=== PATIENT | male | born 1955 | race African-American/Black ===

== ENCOUNTER 2018-11-02 12:36 | Emergency (ER) | payer BC, OTHER ==
[2018-11-02] MEDS ORDERED: OSELTAMIVIR 75 MG CAP ONE (14:16)
--- NOTE | 2018-11-02 14:46 | RAD REPORT ---
EXAM DESCRIPTION: Katie Luong (2 Views)11/02/2018 2:38 pm CLINICAL HISTORY: Cough COMPARISON: None FINDINGS: The lungs appear clear of acute infiltrate. The heart is normal size IMPRESSION: No acute abnormalities displayed
--- NOTE | 2018-11-02 14:49 | EDPHYS ---
Physician Documentation [facility] Name: Fermin Schulte Age: 63 yrs Sex: Male : 1955 Arrival Date: 11/02/2018 Time: 12:49 Bed 21 Private MD: Jude Maldonado ED Physician Jayce Gayle HPI: 11/02 14:37 This 63 yrs old Black Male presents to ER via Ambulatory with complaints of Flu jr8 Symptoms. 14:37 flu symptoms that began 2 days ago. Onset: The symptoms/episode began/occurred acutely, jr8 2 day(s) ago. Severity of symptoms: At their worst the symptoms were mild in the emergency department the symptoms are unchanged. The patient has not experienced similar symptoms in the past. The patient has not recently seen a physician. Historical: - Allergies: 13:03 No Known Allergies; hj - Home Meds: 13:03 BP meds [Active]; hj - PMHx: 13:03 Hypertension; hj - PSHx: 13:03 None; hj - Immunization history:: Adult Immunizations not up to date. - Social history:: Smoking status: Patient/guardian denies using tobacco, Patient uses alcohol. - Ebola Screening: : Patient negative for fever greater than or equal to 101.5 degrees Fahrenheit, and additional compatible Ebola Virus Disease symptoms Patient denies exposure to infectious person Patient denies travel to an Ebola-affected area in the 21 days before illness onset. ROS: 14:37 Eyes: Negative for injury, pain, redness, and discharge, Neck: Negative for injury, jr8 pain, and swelling, Cardiovascular: Negative for chest pain, palpitations, and edema, Abdomen/GI: Negative for abdominal pain, nausea, vomiting, diarrhea, and constipation, Back: Negative for injury and pain, MS/Extremity: Negative for injury and deformity, Skin: Negative for injury, rash, and discoloration, Neuro: Negative for headache, weakness, numbness, tingling, and seizure. 14:37 Constitutional: Positive for body aches, chills, fever. 14:37 ENT: Positive for rhinorrhea, sinus congestion, Negative for sore throat. 14:37 Respiratory: Positive for cough, Negative for dyspnea on exertion, shortness of breath, sputum production, wheezing. Exam: 14:37 Eyes: Pupils equal round and reactive to light, extra-ocular motions intact. Lids and jr8 lashes normal. Conjunctiva and sclera are non-icteric and not injected. Cornea within normal limits. Periorbital areas with no swelling, redness, or edema. ENT: Nares patent. No nasal discharge, no septal abnormalities noted. Tympanic membranes are normal and external auditory canals are clear. Oropharynx with no redness, swelling, or masses, exudates, or evidence of obstruction, uvula midline. Mucous membranes moist. Neck: Trachea midline, no thyromegaly or masses palpated, and no cervical lymphadenopathy. Supple, full range of motion without nuchal rigidity, or vertebral point tenderness. No Meningismus. Cardiovascular: Regular rate and rhythm with a normal S1 and S2. No gallops, murmurs, or rubs. Normal PMI, no JVD. No pulse deficits. Abdomen/GI: Soft, non-tender, with normal bowel sounds. No distension or tympany. No guarding or rebound. No evidence of tenderness throughout. Back: No spinal tenderness. No costovertebral tenderness. Full range of motion. Skin: Warm, dry with normal turgor. Normal color with no rashes, no lesions, and no evidence of cellulitis. MS/ Extremity: Pulses equal, no cyanosis. Neurovascular intact. Full, normal range of motion. Neuro: Awake and alert, GCS 15, oriented to person, place, time, and situation. Cranial nerves II-XII grossly intact. Motor strength 5/5 in all extremities. Sensory grossly intact. Cerebellar exam normal. Normal gait. 14:37 Respiratory: the patient does not display signs of respiratory distress, Respirations: normal, symetrical, no use of accessory muscles, no grunting, no evidence of nasal flaring, no prolonged exhalations, no pursed lip breathing, no retractions, no shallow respirations, no splinting, no tachypnea, Breath sounds: rales, that are mild, are heard in the left posterior lower lobe. Vital Signs: 13:04 BP 169 / 88; Pulse 96; Resp 18; Temp 99.7(O); Pulse Ox 99% on R/A; Weight 68.04 kg; hj Height 5 ft. 9 in. (175.26 cm); Pain 0/10; 13:04 Body Mass Index 22.15 (68.04 kg, 175.26 cm) hj MDM: 14:03 Patient medically screened. jr8 14:48 Data reviewed: vital signs, nurses notes, lab test result(s), Flu: positive radiologic jr8 studies, plain films. Data interpreted: Pulse oximetry: on room air is 99 %. Interpretation: normal. Counseling: I had a detailed discussion with the patient and/or guardian regarding: the historical points, exam findings, and any diagnostic results supporting the discharge/admit diagnosis, lab results, radiology results, the need for outpatient follow up, a family practitioner, to return to the emergency department if symptoms worsen or persist or if there are any questions or concerns that arise at home. 11/02 13:05 Order name: Flu; Complete Time: 14:04 11/02 14:12 Order name: XRAY Chest Pa And Lat (2 Views); Complete Time: 14:48 jr8 Administered Medications: 14:05 Drug: Tamiflu 75 mg Route: PO; 14:09 Follow up: Response: No adverse reaction Disposition: 11/02/18 14:49 Discharged to Home. Impression: Influenza due to identified novel influenza A virus. - Condition is Stable. - Discharge Instructions: Influenza, Adult. - Prescriptions for Tamiflu 75 mg Oral Capsule - take 1 capsule by ORAL route every 12 hours for 5 days; 10 capsule. Tessalon Perles 100 mg Oral Capsule - take 1 capsule by ORAL route every 8 hours As needed; 15 capsule. Albuterol Sulfate 90 mcg/actuation - inhale 1-2 puff by INHALATION route every 4-6 hours; 1 Inhaler. Guaifenesin AC 10- 100 mg/5 mL Oral Liquid - take 10 milliliter by ORAL route every 4 hours As needed; 240 milliliter. - Medication Reconciliation Form, Thank You Letter, Antibiotic Education, Prescription Opioid Use form. - Follow up: Jude Maldonado MD; When: 5 - 6 days; Reason: Recheck today's complaints, Continuance of care, Re-evaluation by your physician. - Problem is new. - Symptoms have improved. Addendum: 11/15/2018 07:29 Co-signature as Attending Physician, Jayce Gayle MD I agree with the assessment and k dr plan of care. Signatures: Dispatcher [employer] EDKS Jayce Gayle MD MD [facility] Migue Rand PA PA jr8 Brijesh Cohn RN RN hj Corrections: (The following items were deleted from the chart) 11/02 14:57 14:49 11/02/2018 14:49 Discharged to Home. Impression: Influenza due to identified hj novel influenza A virus. Condition is Stable. Forms are Medication Reconciliation Form, Thank You Letter, Antibiotic Education, Prescription Opioid Use. Follow up: Jude Maldonado; When: 5 - 6 days; Reason: Recheck today's complaints, Continuance of care, Re-evaluation by your physician. Problem is new. Symptoms have improved. jr8
--- NOTE | 2018-11-02 14:49 | ER ---
Nurse's Notes [facility] Name: Fermin Schulte Age: 63 yrs Sex: Male : 1955 Arrival Date: 11/02/2018 Time: 12:49 Bed 21 Private MD: Jude Maldonado Diagnosis: Influenza due to identified novel influenza A virus Presentation: 11/02 13:01 Presenting complaint: Patient states: fever, nasal congestion, started 2 days ago; hj 100.2; mucinex taken today; denies sore throat;. Transition of care: patient was not received from another setting of care. Onset of symptoms was November 02, 2018. Risk Assessment: Do you want to hurt yourself or someone else? Patient reports no desire to harm self or others. Initial Sepsis Screen: Does the patient meet any 2 criteria? No. Patient's initial sepsis screen is negative. Does the patient have a suspected source of infection? No. Patient's initial sepsis screen is negative. Care prior to arrival: None. 13:01 Method Of Arrival: Ambulatory 13:01 Acuity: FATOUMATA 4 hj Triage Assessment: 13:03 General: Appears in no apparent distress. uncomfortable, Behavior is calm, cooperative, hj appropriate for age. Pain: Denies pain. Historical: - Allergies: 13:03 No Known Allergies; hj - Home Meds: 13:03 BP meds [Active]; hj - PMHx: 13:03 Hypertension; hj - PSHx: 13:03 None; hj - Immunization history:: Adult Immunizations not up to date. - Social history:: Smoking status: Patient/guardian denies using tobacco, Patient uses alcohol. - Ebola Screening: : Patient negative for fever greater than or equal to 101.5 degrees Fahrenheit, and additional compatible Ebola Virus Disease symptoms Patient denies exposure to infectious person Patient denies travel to an Ebola-affected area in the 21 days before illness onset. Screenin:03 Abuse screen: Denies threats or abuse. Denies injuries from another. Nutritional hj screening: No deficits noted. Tuberculosis screening: No symptoms or risk factors identified. Fall Risk None identified. Vital Signs: 13:04 BP 169 / 88; Pulse 96; Resp 18; Temp 99.7(O); Pulse Ox 99% on R/A; Weight 68.04 kg; hj Height 5 ft. 9 in. (175.26 cm); Pain 0/10; 13:04 Body Mass Index 22.15 (68.04 kg, 175.26 cm) hj ED Course: 12:49 Patient arrived in ED. mr 12:49 Jude Maldonado MD is Private Physician. mr 13:02 Triage completed. hj 13:03 Arm band placed on right wrist. hj 13:03 Patient has correct armband on for positive identification. Bed in low position. Call hj light in reach. Side rails up X 1. Adult w/ patient. 13:37 Flu Sent. hj 13:59 Brijesh Cohn, DONN is Primary Nurse. hj 14:03 Migue Rand PA is PHCP. jr8 14:03 Jayce Gayle MD is Attending Physician. jr8 14:35 Patient moved to radiology via wheelchair. jb2 14:38 X-ray completed. Patient tolerated procedure well. Patient moved back from radiology. ka 14:39 XRAY Chest Pa And Lat (2 Views) In Process Unspecified. EDMS 14:49 Jude Maldonado MD is Referral Physician. jr8 14:56 No provider procedures requiring assistance completed. Patient did not have IV access hj during this emergency room visit. Administered Medications: 14:05 Drug: Tamiflu 75 mg Route: PO; hj 14:09 Follow up: Response: No adverse reaction hj Outcome: 14:49 Discharge ordered by . jr8 14:57 Discharged to home ambulatory, with family. hj 14:57 Condition: stable 14:57 Discharge instructions given to patient, family, Instructed on discharge instructions, follow up and referral plans. medication usage, Demonstrated understanding of instructions, follow-up care, medications, Prescriptions given X 4. 14:57 Patient left the ED. hj Signatures: Dispatcher [employer] [facility] Adolph Eliezer Gross jb2 Migue Rand PA PA jr8 Brijesh Cohn, DONN RN Dana Rockwell Corrections: (The following items were deleted from the chart) 13:08 13:04 Pulse 96bpm; Resp 18bpm; Pulse Ox 99% RA; Temp 99.7F Oral; 68.04 kg; Height 5 ft. hj 9 in.; BMI: 22.1; Pain 0/10; hj
== END 2018-11-02 14:57 | disposition home or self-care (01) ==
LOC: ER 12:36
DX: J10.1 Influenza due to other identified influenza virus with other respiratory manifestations (principal); I10 Essential (primary) hypertension
CPT/HCPCS: 71046; 87804; 99284